=== PATIENT | female | born 1960 | race American Indian/Alaskan Native ===

== ENCOUNTER 2016-09-08 12:17 | Outpatient (CLI) | payer OTHER ==
--- NOTE | 2016-09-08 15:18 | Mammography Report ---
BILATERAL DIGITAL SCREENING MAMMOGRAM with CAD: 09/08/16 12:17:00 CLINICAL: Routine screening.Status post bilateral reduction mammoplasty. COMPARISON:06/19/14 FINDINGS: The breasts are almost entirely fatty.Stable right lower inner focal asymmetry consistent with benign scar. No mass, architectural distortion or suspicious calcifications. IMPRESSION: No mammographic evidence of malignancy. BI-RADS CATEGORY: 2 -- Benign RECOMMENDATION: Routine mammographic screening in one year. COMMENT: Patient follow-up letters are generated by our [employer] application.
== END 2016-09-08 12:18 | disposition home or self-care (01) ==
LOC: SPVWC 12:17
PROVIDERS: ATTEND Obstetrics & Gynecology
DX: Z12.31 Encounter for screening mammogram for malignant neoplasm of breast (principal)
CPT/HCPCS: 77067; G0202